=== PATIENT | female | born 1940 | race Caucasian/White ===

== ENCOUNTER 2018-01-15 07:54 | Outpatient (CLI) | payer MEDICARE ==
[2018-01-15 10:53] LABS: BASOPHILS # (AUTO) 0.1 10^3/uL (0.0-0.1); BASOPHILS % (AUTO) 0.8 %; EOSINOPHILS # (AUTO) 0.2 10^3/uL (0.0-0.7); EOSINOPHILS % (AUTO) 2.5 %; HGB - HEMOGLOBIN 11.8 g/dL (12.0-16.0); LYMPHOCYTES % (AUTO) 23.8 %; MEAN CORPUSCULAR HEMOGLOBIN 29.3 pg (27.0-31.0); MEAN CORPUSCULAR HGB CONC 33.5 g/dL (32.0-36.0); MEAN CORPUSCULAR VOLUME 87.2 fL (81.0-99.0); MEAN PLATELET VOLUME 7.1 fL (7.9-10.8); MONOCYTES # (AUTO) 0.7 10^3/uL (0.0-1.0); MONOCYTES % (AUTO) 8.7 %; NEUTROPHILS # (AUTO) 5.4 10^3/uL (1.5-6.6); NEUTROPHILS % (AUTO) 64.2 %; PLT - PLATELET COUNT 350 10^3/uL (130-450); RED BLOOD COUNT 4.04 10^6/uL (4.20-5.40); RED CELL DISTRIBUTION WIDTH 13.4 % (12.0-15.0); WHITE BLOOD COUNT 8.4 x10^3/uL (4.8-10.8)
[2018-01-15 11:24] LABS: ALBUMIN 3.6 g/dL (3.2-5.5); BILIRUBIN,TOTAL 0.6 mg/dL (0.2-1.0); CALCIUM 8.8 mg/dL (8.5-10.3); CREATININE 0.5 mg/dL (0.4-1.0); TOTAL PROTEIN 7.3 g/dL (6.7-8.2)
== END 2018-01-15 07:55 | disposition home or self-care (01) ==
LOC: LAB.F 07:54
PROVIDERS: ATTEND Physician Assistant Medical
DX: R53.83 Other fatigue (principal); M25.50 Pain in unspecified joint; R51 Headache; E55.9 Vitamin D deficiency, unspecified
CPT/HCPCS: 36415; 80053; 82306; 85025

== ENCOUNTER 2018-02-12 14:57 | Outpatient (CLI) | payer MEDICARE | END 2018-02-12 14:58 | disposition home or self-care (01) | LOC: LAB.F 14:57 | PROVIDERS: ATTEND Internal Medicine | DX: M25.50 Pain in unspecified joint (principal) | CPT/HCPCS: 36415; 85651 ==

== ENCOUNTER 2018-03-26 11:55 | Outpatient (CLI) | payer MEDICARE ==
[2018-03-26 17:25] LABS: HGB - HEMOGLOBIN 12.9 g/dL (12.0-16.0); MEAN CORPUSCULAR HEMOGLOBIN 28.9 pg (27.0-31.0); MEAN CORPUSCULAR VOLUME 87.8 fL (81.0-99.0); MEAN PLATELET VOLUME 7.2 fL (7.9-10.8); RED BLOOD COUNT 4.46 10^6/uL (4.20-5.40); WHITE BLOOD COUNT 12.7 x10^3/uL (4.8-10.8)
[2018-03-26 18:03] LABS: CALCIUM 9.1 mg/dL (8.5-10.3); CREATININE 0.6 mg/dL (0.4-1.0)
== END 2018-03-26 11:56 | disposition home or self-care (01) ==
LOC: LAB.F 11:55
PROVIDERS: ATTEND Internal Medicine
DX: M35.3 Polymyalgia rheumatica (principal)
CPT/HCPCS: 36415; 80048; 85027; 85651

== ENCOUNTER 2018-04-20 11:29 | Outpatient (CLI) | payer MEDICARE | END 2018-04-20 11:30 | disposition home or self-care (01) | LOC: LAB.R 11:29 | PROVIDERS: ATTEND Internal Medicine | DX: N30.90 Cystitis, unspecified without hematuria (principal) | CPT/HCPCS: 87086 ==

== ENCOUNTER 2018-05-21 13:13 | Outpatient (CLI) | payer MEDICARE ==
[2018-05-21 17:37] LABS: HGB - HEMOGLOBIN 13.1 g/dL (12.0-16.0); MEAN CORPUSCULAR HGB CONC 34.2 g/dL (32.0-36.0); MEAN CORPUSCULAR VOLUME 87.6 fL (81.0-99.0); MEAN PLATELET VOLUME 7.2 fL (7.9-10.8); RED BLOOD COUNT 4.38 10^6/uL (4.20-5.40); RED CELL DISTRIBUTION WIDTH 16.4 % (12.0-15.0); WHITE BLOOD COUNT 9.8 x10^3/uL (4.8-10.8)
== END 2018-05-21 13:14 | disposition home or self-care (01) ==
LOC: LAB.F 13:13
PROVIDERS: ATTEND Internal Medicine
DX: M35.3 Polymyalgia rheumatica (principal)
CPT/HCPCS: 36415; 85027; 85651

== ENCOUNTER 2018-07-09 14:12 | Outpatient (CLI) | payer MEDICARE | END 2018-07-09 14:13 | disposition home or self-care (01) | LOC: LAB.F 14:12 | PROVIDERS: ATTEND Internal Medicine | DX: M35.3 Polymyalgia rheumatica (principal) | CPT/HCPCS: 36415; 85651 ==

== ENCOUNTER 2018-08-24 08:57 | Outpatient (CLI) | payer MEDICARE | END 2018-08-24 08:58 | disposition home or self-care (01) | LOC: LAB.F 08:57 | PROVIDERS: ATTEND Internal Medicine | DX: M35.3 Polymyalgia rheumatica (principal) | CPT/HCPCS: 36415; 85651 ==

== ENCOUNTER 2018-11-30 11:21 | Outpatient (CLI) | payer MEDICARE ==
[2018-11-30 18:19] LABS: BASOPHILS # (AUTO) 0.1 10^3/uL (0.0-0.1); BASOPHILS % (AUTO) 0.6 %; EOSINOPHILS # (AUTO) 0.2 10^3/uL (0.0-0.7); EOSINOPHILS % (AUTO) 2.3 %; HGB - HEMOGLOBIN 13.4 g/dL (12.0-16.0); LYMPHOCYTES # (AUTO) 2.3 10^3/uL (1.5-3.5); LYMPHOCYTES % (AUTO) 29.4 %; MEAN CORPUSCULAR HGB CONC 33.2 g/dL (32.0-36.0); MEAN CORPUSCULAR VOLUME 90.5 fL (81.0-99.0); MEAN PLATELET VOLUME 7.8 fL (7.9-10.8); MONOCYTES # (AUTO) 0.6 10^3/uL (0.0-1.0); MONOCYTES % (AUTO) 8.1 %; NEUTROPHILS # (AUTO) 4.7 10^3/uL (1.5-6.6); NEUTROPHILS % (AUTO) 59.6 %; PLT - PLATELET COUNT 297 10^3/uL (130-450); RED BLOOD COUNT 4.48 10^6/uL (4.20-5.40); RED CELL DISTRIBUTION WIDTH 13.6 % (12.0-15.0); WHITE BLOOD COUNT 7.9 x10^3/uL (4.8-10.8)
[2018-11-30 18:52] LABS: ALBUMIN 3.8 g/dL (3.2-5.5); ALBUMIN/GLOBULIN RATIO 1.2 (1.0-2.2); BILIRUBIN,TOTAL 0.7 mg/dL (0.2-1.0); CALCIUM 9.2 mg/dL (8.5-10.3); CREATININE 0.5 mg/dL (0.4-1.0); TOTAL PROTEIN 6.9 g/dL (6.7-8.2)
== END 2018-11-30 11:22 | disposition home or self-care (01) ==
LOC: LAB.F 11:21
PROVIDERS: ATTEND Internal Medicine
DX: M35.3 Polymyalgia rheumatica (principal)
CPT/HCPCS: 36415; 80053; 85025; 85651

== ENCOUNTER 2019-01-19 10:08 | Outpatient (CLI) | payer MEDICARE ==
[2019-01-19 18:07] LABS: BASOPHILS % (AUTO) 0.3 %; EOSINOPHILS % (AUTO) 0.4 %; HGB - HEMOGLOBIN 12.9 g/dL (12.0-16.0); LYMPHOCYTES # (AUTO) 3.6 10^3/uL (1.5-3.5); LYMPHOCYTES % (AUTO) 35.5 %; MEAN CORPUSCULAR HEMOGLOBIN 30.5 pg (27.0-31.0); MEAN CORPUSCULAR HGB CONC 33.4 g/dL (32.0-36.0); MEAN CORPUSCULAR VOLUME 91.6 fL (81.0-99.0); MEAN PLATELET VOLUME 7.5 fL (7.9-10.8); MONOCYTES # (AUTO) 0.8 10^3/uL (0.0-1.0); MONOCYTES % (AUTO) 7.7 %; NEUTROPHILS # (AUTO) 5.7 10^3/uL (1.5-6.6); NEUTROPHILS % (AUTO) 56.1 %; PLT - PLATELET COUNT 293 10^3/uL (130-450); RED BLOOD COUNT 4.22 10^6/uL (4.20-5.40); RED CELL DISTRIBUTION WIDTH 14.7 % (12.0-15.0); WHITE BLOOD COUNT 10.2 x10^3/uL (4.8-10.8)
== END 2019-01-19 10:09 | disposition home or self-care (01) ==
LOC: LAB.F 10:08
PROVIDERS: ATTEND Internal Medicine
DX: M35.3 Polymyalgia rheumatica (principal)
CPT/HCPCS: 36415; 85025; 85651

== ENCOUNTER 2019-03-24 10:44 | Outpatient (CLI) | payer MEDICARE | END 2019-03-24 10:45 | disposition home or self-care (01) | LOC: LAB.S 10:44 | PROVIDERS: ATTEND Internal Medicine | DX: M35.3 Polymyalgia rheumatica (principal) | CPT/HCPCS: 36415; 85651 ==

== ENCOUNTER 2019-03-25 12:49 | Outpatient (CLI) | payer MEDICARE ==
--- NOTE | 2019-03-26 11:18 | DEXA Report ---
Reason: OSTEOPENIA Procedure Date: 03/25/2019 Accession Number: [id number] / [id number] Procedure: DEX - Dexa Spine and/or Hip CPT Code: FULL RESULT: EXAM: Dexa Spine and/or Hip DATE: 03/25/2019 1:25 PM CLINICAL HISTORY: OSTEOPENIA TECHNIQUE: Dual energy x-ray absorptiometry (DXA) was performed on a [employer] System. Regions measured are the AP Spine, femoral neck, and if needed forearm. COMPARISON: 04/11/2016. In accordance with the International Society for Clinical Densitometry (ISCD) guidelines, data from previous exams may be reanalyzed using current recommendations and techniques. This is done to allow a more accurate basis for comparison with the current study. FINDINGS: The data for the lumbar spine is as follows: BMD (g/cm/cm) T-SCORE Z-SCORE REGION L1 1.066 -0.5 1.1 L2 1.062 -1.2 0.5 L3 1.149 -0.4 1.2 L4 1.195 0.0 1.6 TOTAL 1.123 -0.5 1.2 NOTE: All evaluable vertebrae are used for classification The data for the hip is as follows: BMD (g/cm/cm) T-SCORE Z-SCORE REGION Neck 0.887 -1.1 0.8 TOTAL 0.909 -0.8 0.9 NOTE: The femoral neck or total proximal femur, whichever is lowest, is used for classification. DXA RESULTS SUMMARY: Spine SCAN DATE [age] BMD CHANGE VS CHANGE VS PREVIOUS PREVIOUS % 5/25/2019 [age] 1.123 -0.021 -1.8 04/11/2016 [age] 1.144 * Denotes significant change at the 95% confidence level. Denotes dissimilar scan types or analysis methods. DXA RESULTS SUMMARY: Hip SCAN DATE [age]GE BMD CHANGE VS CHANGE VS PREVIOUS PREVIOUS % 5/25/2019 78.7 0.909 -0.020 -2.2 04/11/2019 75.8 0.929 * Denotes significant change at the 95% confidence level. Denotes dissimilar scan types or analysis methods. IMPRESSION: THE WHO CLASSIFICATION BASED ON THE INTERNATIONAL REFERENCE STANDARD IS OSTEOPENIA. THE FRACTURE RISK IS INCREASED. RECOMMENDATION: Patients with diagnosis of osteoporosis or osteopenia should have regular bone mineral density assessment. For those eligible for Medicare, routine testing is allowed once every 2 years. Testing frequency can be increased for patients who have rapidly progressing disease or for those who are receiving medical therapy to restore bone mass. COMMENT: World Health Organization (WHO) definitions for osteoporosis and osteopenia: NORMAL BMD: T-score at -1.0 or higher, fracture risk is low OSTEOPENIA BMD: T-score between -1.0 and -2.5, fracture risk is increased. OSTEOPOROSIS BMD: T-score at -2.5 or lower, fracture risk is high. National Osteoporosis Foundation recommends: 1. Obtain adequate dietary calcium (at least 1200 mg per day) and vitamin D (400-800 international units per day). 2. Participate, as appropriate, in regular weightbearing and muscle-strengthening exercise. 3. Avoid tobacco use and reduce alcohol and caffeine intake. 4. For more detailed information see the website at www.NOF.org.
== END 2019-03-25 12:50 | disposition home or self-care (01) ==
LOC: DI 12:49
PROVIDERS: ATTEND Internal Medicine
DX: M85.88 Other specified disorders of bone density and structure, other site (principal)
CPT/HCPCS: 77080

== ENCOUNTER 2019-05-13 07:27 | Day surgery (SDC) | payer MEDICARE ==
[~2019-05-13 07:27] MED LIST: TRIAMCIN/MOXIFLOX OPHTHALMIC 0.6 ML VIAL IO ONE
[2019-05-13] MEDS ORDERED: MIDAZOLAM 2 MG/2 ML VIAL IVP ONE (07:28)
[2019-05-13] MEDS ORDERED: BRIMONIDINE 0.2% OPHTH DROPS 5 ML ONE (07:28)
[2019-05-13] MEDS ORDERED: EPINEPHrine 1 MG/ML AMP ONE (07:28)
[2019-05-13] MEDS ORDERED: TIMOLOL 0.5% OPHTH DROPS ONE (07:28)
[2019-05-13] MEDS ORDERED: BSS/LIDOCAINE/EPINEPHRINE 1 ML SYRINGE ONE (07:29)
[2019-05-13] MEDS ORDERED: VANCOMYCIN OPHTHALMI 8MG/0.8ML 8 MG/0.8 ML SYRINGE IO ONE ×2 (07:29→10:16)
[2019-05-13] MEDS ORDERED: KETOROLAC 0.45% OPHTH DROPS ONE (07:33)
[2019-05-13] MEDS ORDERED: CYCLOPENTOLATE 1% OPHTH DROPS 2 ML ONE (07:34)
[2019-05-13] MEDS ORDERED: PROPARACAINE 0.5% OPHTH DROPS 15 ML ONE (07:34)
[2019-05-13] MEDS ORDERED: PHENYLEPHRINE 2.5% OPHTH 2 ML DROPS ONE (07:34)
[2019-05-13] MEDS ORDERED: CYCLOPENTOLATE 1% OPHTH DROPS 2 ML RIGHTEYE ONE (07:45)
[2019-05-13] MEDS ORDERED: KETOROLAC 0.45% OPHTH DROPS RIGHTEYE ONE (07:45)
[2019-05-13] MEDS ORDERED: PROPARACAINE 0.5% OPHTH DROPS 15 ML RIGHTEYE ONE (07:45)
[2019-05-13] MEDS ORDERED: PHENYLEPHRINE 2.5% OPHTH 2 ML DROPS RIGHTEYE ONE (07:45)
[2019-05-13] MEDS ORDERED: LACTATED RINGERS 500 ML IV ONE (07:45)
--- NOTE | 2019-05-13 09:23 | ANESTHESIA ---
Pre-Anesthesia VS, & Labs - Diagnosis Right nuclear sclerotic cataract - Procedure Right phaco with IOL implant Vital Signs: Temp Pulse Resp BP Pulse Ox 36.7 C 74 14 168/92 H 97 05/13/19 07:47 05/13/19 07:47 05/13/19 07:47 05/13/19 07:47 05/13/19 07:47 Height 5 ft 2 in Weight (kg) 69 kg - NPO >8 hours - Is Patient ?: Not Applicable - Lab Results Lab results reviewed: No Home Medications and Allergies Lisinopril 10 mg PO DAILY 03/17/19 predniSONE [Prednisone] 10 mg PO DAILY 03/17/19 Allergies/Adverse Reactions: Allergies Allergy/AdvReac Type Severity Reaction Status Date / Time No Known Drug Allergies Allergy Verified 05/13/19 07:53 Anes History & Medical History - Anesthetic History Anesthesia Complications: reports: No previous complications Family history of Anesthesia Complications: Denies Family history of Malignant Hyperthermia: Denies - Medical History Cardiovascular: reports: Hypertension Pulmonary: reports: None Gastrointestinal: reports: None Urinary: reports: None Neuro: reports: None Musculoskeletal: reports: None 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, poly mylasia rheumatica) Blood Disorders: reports: None Skin: reports: None Smoking Status: Never smoker Psychosocial: reports: No issues indicated - Surgical History Eyes Ears Nose Throat (EENT): Cataracts Gynecologic: Tubal ligation Exam General: Alert, Oriented x3, Cooperative Dental: WNL Mouth Openin Fingerbreadth Neck Mobility: Normal Mallampati classification: II Thyromental Distance: greater than 6 cm Respiratory: Lungs clear Cardiovascular: Regular rate Mental/Cognitive Status: Alert/Oriented X3 Cognitive Status: Within normal limits Plan Anesthesia Type: MAC Consent for Procedure(s) Verified and Reviewed: Yes Code Status: Attempt Resuscitation ASA classification: 2-Mild systemic disease Is this case an emergency?: No
[2019-05-13] MEDS ORDERED: EPINEPHrine 1 MG/ML AMP IVP ONE (10:14)
[2019-05-13] MEDS ORDERED: TIMOLOL 0.5% OPHTH DROPS OPTH ONE (10:14)
[2019-05-13] MEDS ORDERED: TRIAMCIN/MOXIFLOX OPHTHALMIC 0.6 ML VIAL IO ONE (10:14)
[2019-05-13] MEDS ORDERED: BRIMONIDINE 0.2% OPHTH DROPS 5 ML OPTH ONE (10:14)
[2019-05-13] MEDS ORDERED: CHONDR SULF/HYALURONATE SYRINGE IO ONE (10:14)
[2019-05-13] MEDS ORDERED: BSS/LIDOCAINE/EPINEPHRINE 1 ML SYRINGE IO ONE (10:14)
[2019-05-13 10:31] VITALS: BP 145/72
--- NOTE | 2019-05-13 11:02 | OPERATIVE REPORT ---
DATE OF SERVICE: 05/13/2019 Physician: Eliceo Buenrostro MD PREOPERATIVE DIAGNOSIS: Visually significant cataract, right eye. Cataract surgery was performed on the left eye on 03/18/2019. POSTOPERATIVE DIAGNOSIS: Visually significant cataract, right eye. Cataract surgery was performed o n the left eye on 03/18/2019. PROCEDURE: Phacoemulsification with posterior chamber intraocular lens implant, right eye. SURGEON: Eliceo Buenrostro MD ANESTHESIA: Monitored anesthesia care. COMPLICATIONS: None. OPERATIVE INDICATIONS: This is a 78-year-old woman with progressive vision loss in the right eye due to 3-4+ nuclear sclerotic cataract. Best corrected visual acuity was 20/40, with glare to 20/100 in the right eye. Indications for surgery were difficulty seeing words on a computer screen. She was consented at length concerning risks and benefits of cataract surgery, after which she expressed a de sire to proceed with surgery. OPERATIVE PROCEDURE: Patient was taken to OR #3 and placed under monitored anesthesia care. A surgi gloria timeout was conducted confirming correct patient, correct procedure, and correct surgical site. She was given topical anesthesia, and prepped and draped in the usual sterile fashion. The eye was e ntered at the 12 and 9 o'clock positions. Intracameral Shugarcaine was injected into the anterior ch kelli, followed by Viscoat. A continuous-tear curvilinear capsulorrhexis was performed. The nucleus was hydrodissected and phacoemulsified. The cortex was evacuated using automated infusion and aspir ation. Provisc was injected in the capsular bag, and a 20.5 diopter intraocular lens was inserted in the bag. Approximately 0.8 mL of a mixture of triamcinolone, moxifloxacin and vancomycin was inject ed subconjunctivally in the superior quadrant for infection and inflammation prophylaxis. I and A wa s used to evacuate the viscoelastic materials. The eye was inflated to physiologic pressure using ba lanced salt solution and found to be watertight. Patient was taken from the operating room in good c ondition and given postoperative instructions. TD: 05/13/2019 10:33
== END 2019-05-13 07:28 | disposition home or self-care (01) ==
LOC: SDS 07:27
PROVIDERS: ATTEND Ophthalmology
PROC: 08RJ3JZ Replacement of Right Lens with Synthetic Substitute, Percutaneous Approach (ICD-10-PCS; principal; 2019-05-13 08:30)
DX: H25.11 Age-related nuclear cataract, right eye (principal); I10 Essential (primary) hypertension; M35.3 Polymyalgia rheumatica
CPT/HCPCS: 66984; A9270; J3490; V2632

== ENCOUNTER 2019-05-21 10:44 | Outpatient (CLI) | payer MEDICARE | END 2019-05-21 10:45 | disposition home or self-care (01) | LOC: LAB.S 10:44 | PROVIDERS: ATTEND Internal Medicine | DX: M35.3 Polymyalgia rheumatica (principal) | CPT/HCPCS: 36415; 85651 ==

== ENCOUNTER 2019-06-25 12:47 | Outpatient (CLI) | payer MEDICARE | END 2019-06-25 12:48 | disposition home or self-care (01) | LOC: LAB.S 12:47 | PROVIDERS: ATTEND Internal Medicine | DX: M35.3 Polymyalgia rheumatica (principal) | CPT/HCPCS: 36415; 85651 ==

== ENCOUNTER 2019-07-12 08:00 | Outpatient (CLI) | payer MEDICARE ==
[2019-07-12 21:36] LABS: CANDIDA GROUP DNA NEGATIVE (NEGATIVE); CANDIDA KRUSEI DNA NEGATIVE (NEGATIVE); TRICHOMONAS VAGINALIS DNA NEGATIVE (NEGATIVE)
== END 2019-07-12 23:59 | disposition home or self-care (01) ==
LOC: LAB.R 08:00
PROVIDERS: ATTEND Nurse Practitioner Obstetrics & Gynecology
DX: N89.8 Other specified noninflammatory disorders of vagina (principal)
CPT/HCPCS: 87661; 87801

== ENCOUNTER 2019-07-29 13:42 | Outpatient (CLI) | payer MEDICARE | END 2019-07-29 13:43 | disposition home or self-care (01) | LOC: LAB.S 13:42 | PROVIDERS: ATTEND Internal Medicine | DX: M35.3 Polymyalgia rheumatica (principal) | CPT/HCPCS: 36415; 85651 ==

== ENCOUNTER 2019-08-23 13:11 | Outpatient (CLI) | payer MEDICARE | END 2019-08-23 13:12 | disposition home or self-care (01) | LOC: LAB.S 13:11 | PROVIDERS: ATTEND Internal Medicine | DX: M35.3 Polymyalgia rheumatica (principal) | CPT/HCPCS: 36415; 85651 ==

== ENCOUNTER 2021-08-08 09:31 | Outpatient (CLI) | payer MEDICARE ==
[2021-08-08 14:47] LABS: BASOPHILS # (AUTO) 0.1 10^3/uL (0.0-0.1); BASOPHILS % (AUTO) 1.1 %; EOSINOPHILS # (AUTO) 0.2 10^3/uL (0.0-0.7); HCT - HEMATOCRIT 43.3 % (37.0-47.0); HGB - HEMOGLOBIN 13.8 g/dL (12.0-16.0); LYMPHOCYTES # (AUTO) 2.2 10^3/uL (1.5-3.5); LYMPHOCYTES % (AUTO) 34.6 %; MEAN CORPUSCULAR HEMOGLOBIN 29.5 pg (27.0-31.0); MEAN CORPUSCULAR HGB CONC 31.9 g/dL (32.0-36.0); MEAN CORPUSCULAR VOLUME 92.5 fL (81.0-99.0); MEAN PLATELET VOLUME 9.4 fL (7.9-10.8); MONOCYTES # (AUTO) 0.4 10^3/uL (0.0-1.0); MONOCYTES % (AUTO) 6.7 %; NEUTROPHILS # (AUTO) 3.4 10^3/uL (1.5-6.6); PLT - PLATELET COUNT 301 10^3/uL (130-450); RED BLOOD COUNT 4.68 10^6/uL (4.20-5.40); RED CELL DISTRIBUTION WIDTH 13.1 % (12.0-15.0); WHITE BLOOD COUNT 6.3 x10^3/uL (4.8-10.8)
[2021-08-08 15:15] LABS: THYROID STIMULATING HORMONE 3.57 uIU/mL (0.34-5.60)
[2021-08-08 15:18] LABS: ALBUMIN/GLOBULIN RATIO 1.4 (1.0-2.2); ALKALINE PHOSPHATASE 67 IU/L (42-121); ALT ALANINE AMINOTRANSFERASE 16 IU/L (10-60); AST ASPARTATE AMINOTRANSFERASE 21 IU/L (10-42); BILIRUBIN,TOTAL 0.7 mg/dL (0.2-1.0); BUN - BLOOD UREA NITROGEN 12 mg/dL (6-20); CALCIUM 8.9 mg/dL (8.5-10.3); CARBON DIOXIDE - CO2 27 mmol/L (21-32); CHLORIDE 102 mmol/L (101-111); CHOL/HDL RATIO 5.1 (<4.4); CHOLESTEROL 295 mg/dL; CREATININE 0.6 mg/dL (0.4-1.0); GFR - MDRD 96 (>89); GLUCOSE 88 mg/dL (70-100); HDL CHOLESTEROL 58 mg/dL; LDL CHOLESTEROL,CALCULATED 214 mg/dL; LDL/HDL RATIO 3.7 (<4.4); POTASSIUM 3.7 mmol/L (3.5-5.0); SODIUM 138 mmol/L (135-145); TOTAL PROTEIN 6.9 g/dL (6.7-8.2); TRIGLYCERIDES 117 mg/dL; VLDL CHOLESTEROL 23 mg/dL
== END 2021-08-08 09:32 | disposition home or self-care (01) ==
LOC: LAB.S 09:31
PROVIDERS: ATTEND Registered Nurse
DX: I10 Essential (primary) hypertension (principal); M35.3 Polymyalgia rheumatica; M85.80 Other specified disorders of bone density and structure, unspecified site
CPT/HCPCS: 36415; 80053; 80061; 83721; 84443; 85025

== ENCOUNTER 2022-07-29 09:51 | Outpatient (CLI) | payer MEDICARE ==
[2022-07-29 14:55] LABS: BASOPHILS # (AUTO) 0.1 10^3/uL (0.0-0.1); BASOPHILS % (AUTO) 1.2 %; EOSINOPHILS # (AUTO) 0.4 10^3/uL (0.0-0.7); EOSINOPHILS % (AUTO) 5.8 %; HCT - HEMATOCRIT 43.9 % (37.0-47.0); HGB - HEMOGLOBIN 13.7 g/dL (12.0-16.0); LYMPHOCYTES # (AUTO) 2.4 10^3/uL (1.5-3.5); LYMPHOCYTES % (AUTO) 35.8 %; MEAN CORPUSCULAR HEMOGLOBIN 28.8 pg (27.0-31.0); MEAN CORPUSCULAR HGB CONC 31.2 g/dL (32.0-36.0); MEAN CORPUSCULAR VOLUME 92.2 fL (81.0-99.0); MEAN PLATELET VOLUME 9.6 fL (7.9-10.8); MONOCYTES # (AUTO) 0.5 10^3/uL (0.0-1.0); MONOCYTES % (AUTO) 7.4 %; NEUTROPHILS # (AUTO) 3.3 10^3/uL (1.5-6.6); NEUTROPHILS % (AUTO) 49.5 %; PLT - PLATELET COUNT 306 10^3/uL (130-450); RED BLOOD COUNT 4.76 10^6/uL (4.20-5.40); RED CELL DISTRIBUTION WIDTH 13.2 % (12.0-15.0); WHITE BLOOD COUNT 6.7 x10^3/uL (4.8-10.8)
[2022-07-29 15:51] LABS: THYROID STIMULATING HORMONE 3.87 uIU/mL (0.34-5.60)
[2022-07-29 15:55] LABS: ALBUMIN 3.9 g/dL (3.2-5.5); ALBUMIN/GLOBULIN RATIO 1.2 (1.0-2.2); ALKALINE PHOSPHATASE 66 IU/L (42-121); ALT ALANINE AMINOTRANSFERASE 13 IU/L (10-60); AST ASPARTATE AMINOTRANSFERASE 20 IU/L (10-42); BILIRUBIN,TOTAL 0.8 mg/dL (0.2-1.0); BUN - BLOOD UREA NITROGEN 14 mg/dL (6-20); CALCIUM 9.1 mg/dL (8.5-10.3); CARBON DIOXIDE - CO2 29 mmol/L (21-32); CHLORIDE 101 mmol/L (101-111); CHOLESTEROL 282 mg/dL; CREATININE 0.6 mg/dL (0.4-1.0); GFR - MDRD 96 (>89); GLUCOSE 95 mg/dL (70-100); HDL CHOLESTEROL 47 mg/dL; LDL CHOLESTEROL,CALCULATED 208 mg/dL; LDL/HDL RATIO 4.4 (<4.4); POTASSIUM 3.8 mmol/L (3.5-5.0); SODIUM 140 mmol/L (135-145); TOTAL PROTEIN 7.2 g/dL (6.7-8.2); TRIGLYCERIDES 135 mg/dL; VLDL CHOLESTEROL 27 mg/dL
== END 2022-07-29 09:52 | disposition home or self-care (01) ==
LOC: LAB.S 09:51
PROVIDERS: ATTEND Registered Nurse
DX: I10 Essential (primary) hypertension (principal); M35.3 Polymyalgia rheumatica; Z13.29 Encounter for screening for other suspected endocrine disorder
CPT/HCPCS: 36415; 80053; 80061; 83721; 84443; 85025

== ENCOUNTER 2022-09-12 12:52 | Emergency (ER) | payer MEDICARE ==
--- NOTE | 2022-09-12 14:21 | ED Physician Documentation ---
PD HPI LOWER EXT INJURY - Stated complaint Stated Complaint: RIGHT HIP PX - Chief complaint Chief Complaint: Ext Problem - History obtained from History obtained from: Patient - History of Present Illness PD HPI LOW EXT INJURY LOCATION: Right, Hip (lateral and posterior aspect of hip. Not hurting in inguinal area per se. Not in lumbar spine. No new injury.) Type of injury: No: Fall, Twist Where injury occurred: Home Timing - onset: How many days ago (few) Timing - duration: Days (few) Timing - details: Gradual onset, Still present, Waxing and waning Improved by: Rest Worsened by: Moving, Other (walking and twisting of right leg.) Associated symptoms: No: Weakness, Numbness, Swelling, Discolored Similar symptoms before: Has not had sx before Recently seen: Not recently seen Review of Systems Constitutional: denies: Fever, Chills Skin: denies: Rash, Lesions Musculoskeletal: denies: Back pain Neurologic: denies: Focal weakness, Numbness PD PAST MEDICAL HISTORY - Past Medical History Cardiovascular: Hypertension Respiratory: None Neuro: None Endocrine/Autoimmune: Other GI: None : None Psych: Claustrophobia Musculoskeletal: None Derm: None - Past Surgical History /[employer]: Tubal ligation HEENT: Cataracts - Present Medications Home Medications: Ambulatory Orders Medication Instructions Recorded Confirmed lisinopriL [Lisinopril] 10 mg PO DAILY 03/17/19 03/18/19 predniSONE [Prednisone] 10 mg PO DAILY 03/17/19 05/13/19 Meloxicam [Mobic] 7.5 mg PO BID 10 Days #20 tablet 09/12/22 oxyCODONE [Roxicodone] 5 mg PO Q6H PRN #12 tablet 09/12/22 tiZANidine [Zanaflex] 4 mg PO Q8H PRN #20 tablet 09/12/22 - Allergies Allergies/Adverse Reactions: Allergies Allergy/AdvReac Type Severity Reaction Status Date / Time No Known Drug Allergies Allergy Verified 09/12/22 13:02 - Social History Does the pt smoke?: No Smoking Status: Never smoker PD ED PE NORMAL - Vitals Vital signs reviewed: Yes - General General: Alert and oriented X 3, Well developed/nourished, Other (appears uncomfortable lying, worse with turning or moving right leg. Pain to lateral trochanter area and posterior hip/SI area. ) - Abdomen Abdomen: Soft, Non tender - Back Back: No CVA TTP, No spinal TTP, Other (tender in mid to lower SI area. Some tender mildly at trochanter area but not as much as expected with bursitis. No rash nor blisters. ) - Derm Derm: Normal color, Warm and dry, No rash - Extremities Extremities: Other (rotational movement of hip and impaction passively without pain. ) Results - Vitals Vitals: Oxygen O2 Source Room air PD Medical Decision Making - ED course Complexity details: reviewed results (symmetric osteoarthritis of hips. No acute fracture nor malposition. ), considered differential, d/w patient Reviewed Lab Results: arthritic changes noted on xray. ED course: area of pain and provocation seem c/w sacroiliitis more than bursitis or lumbar radiculitis. Departure - Departure Disposition: 01 Home, Self Care Clinical Impression: Lateral pain of right hip, Sacroiliac inflammation Condition: Stable Record reviewed to determine appropriate education?: Yes Instructions: ED Sacroiliitis Follow-Up: Keesha Thornton ARNP [Primary Care Provider] - Prescriptions: Meloxicam [Mobic] 7.5 mg PO BID 10 Days #20 tablet oxyCODONE [Roxicodone] 5 mg PO Q6H PRN #12 tablet PRN Reason: Pain tiZANidine [Zanaflex] 4 mg PO Q8H PRN #20 tablet PRN Reason: Spasms Comments: Your x-ray does not show any obvious fractures or abnormalities to my review of it. The radiology report is still pending. On exam your symptoms sound likely to be more inflammation of the sacroiliac joint and the pelvis area with irritation of the nerves going down the thigh. I would suggest trying treating this with anti-inflammatories and muscle relaxant and pain medicine as well as gentle stretching of the hip and SI joint. I sent prescriptions to [facility] in [place]. Take meloxicam twice daily with food for the next 7 to 10 days. Add tizanidine muscle relaxant every 8 hours to help with spasming in the pelvic muscles. To that add Tylenol every 4-6 hours if needed for pain and add oxycodone every 6 hours if needed for worse pain. I would anticipate improvement over the next several days and quite better over 4 to 5 days. Add in heat or ice whichever feels better. You could also consider physical modalities such as physical therapy, massage, chiropractic. Follow-up with your primary if not improved well over the next several days to week. Return to the ER if you have worsening pain, fevers, skin rash, weakness or numbness in the leg or other concerns. Discharge Date/Time: 09/12/22 15:39
[2022-09-12] MEDS ORDERED: CHERRY SYRUP 10 ML UDC PO ONE (14:51)
[2022-09-12] MEDS ORDERED: ACETAMINOPHEN 325 MG TABLET PO STA (14:51)
[2022-09-12] MEDS ORDERED: NAPROXEN 250 MG TABLET PO STA (14:51)
[2022-09-12] MEDS ORDERED: DEXAMETHASONE 10 MG/ML VIAL PO STA (14:51)
[2022-09-12] MEDS ORDERED: oxyCODONE 5 MG TABLET PO STA (14:51)
--- NOTE | 2022-09-12 15:35 | XRAY Report ---
PROCEDURE: Hip w/Pelvis 2-3V RT INDICATIONS: R hip pain TECHNIQUE: AP pelvis with lateral view(s) of the right hip(s). COMPARISON: None. FINDINGS: Bones: No fractures or dislocations. Mild to moderate bilateral hip joint osteophytic changes are s een with joint space narrowing and subchondral sclerosis. No evidence of avascular necrosis of femora l head. Pelvic ring appears intact. No suspicious bony lesions. Soft tissues: The visualized bowel gas pattern is normal. No suspicious soft tissue calcifications. IMPRESSION: Symmetric appearing bilateral hip joint osteoarthritis. No acute right hip fracture or di slocation. No evidence of avascular necrosis. Reviewed by: Tomy Montejo MD on 09/12/2022 3:34 PM PST Approved by: Tomy Montejo MD on 09/12/2022 3:34 PM PST Station ID: [id number]
[2022-09-12 15:39] VITALS: BP 175/80
== END 2022-09-12 15:39 | disposition home or self-care (01) ==
LOC: ED 12:52
DX: M25.551 Pain in right hip (principal); M46.1 Sacroiliitis, not elsewhere classified; I10 Essential (primary) hypertension
CPT/HCPCS: 73502; 99283; A9270

== ENCOUNTER 2022-09-17 08:00 | Outpatient (CLI) | payer MEDICARE | END 2022-09-17 23:59 | disposition home or self-care (01) | LOC: LAB.S 08:00 | PROVIDERS: ATTEND Physician Assistant Medical | DX: M35.3 Polymyalgia rheumatica (principal) | CPT/HCPCS: 36415; 85651; 86140 ==

== ENCOUNTER 2024-01-01 08:34 | Outpatient (CLI) | payer MEDICARE ==
[2024-01-01 14:45] LABS: BASOPHILS # (AUTO) 0.1 10^3/uL (0.0-0.1); EOSINOPHILS # (AUTO) 0.1 10^3/uL (0.0-0.7); EOSINOPHILS % (AUTO) 1.3 %; HCT - HEMATOCRIT 44.4 % (37.0-47.0); HGB - HEMOGLOBIN 13.4 g/dL (12.0-16.0); LYMPHOCYTES # (AUTO) 2.6 10^3/uL (1.5-3.5); LYMPHOCYTES % (AUTO) 38.1 %; MEAN CORPUSCULAR HEMOGLOBIN 28.7 pg (27.0-31.0); MEAN CORPUSCULAR HGB CONC 30.2 g/dL (32.0-36.0); MEAN CORPUSCULAR VOLUME 95.1 fL (81.0-99.0); MEAN PLATELET VOLUME 9.6 fL (7.9-10.8); MONOCYTES # (AUTO) 0.5 10^3/uL (0.0-1.0); MONOCYTES % (AUTO) 6.6 %; NEUTROPHILS # (AUTO) 3.6 10^3/uL (1.5-6.6); NEUTROPHILS % (AUTO) 52.6 %; PLT - PLATELET COUNT 299 10^3/uL (130-450); RED BLOOD COUNT 4.67 10^6/uL (4.20-5.40); RED CELL DISTRIBUTION WIDTH 13.2 % (12.0-15.0); WHITE BLOOD COUNT 6.8 x10^3/uL (4.8-10.8)
[2024-01-01 15:21] LABS: ALBUMIN 4.2 g/dL (3.2-5.5); ALBUMIN/GLOBULIN RATIO 1.6 (1.0-2.2); ALKALINE PHOSPHATASE 60 IU/L (42-121); ALT ALANINE AMINOTRANSFERASE 9 IU/L (10-60); AST ASPARTATE AMINOTRANSFERASE 13 IU/L (10-42); BILIRUBIN,TOTAL 0.5 mg/dL (0.2-1.0); BUN - BLOOD UREA NITROGEN 10 mg/dL (6-20); CALCIUM 9.5 mg/dL (8.5-10.3); CARBON DIOXIDE - CO2 29 mmol/L (21-32); CHLORIDE 105 mmol/L (101-111); CHOL/HDL RATIO 4.7 (<4.4); CHOLESTEROL 258 mg/dL; CREATININE 0.5 mg/dL (0.6-1.3); GFR - MDRD 118 (>89); GLUCOSE 86 mg/dL (74-104); HDL CHOLESTEROL 55 mg/dL; LDL CHOLESTEROL,CALCULATED 175 mg/dL; LDL/HDL RATIO 3.2 (<4.4); SODIUM 139 mmol/L (135-145); TOTAL PROTEIN 6.8 g/dL (6.4-8.9); TRIGLYCERIDES 141 mg/dL (48-352); VLDL CHOLESTEROL 28 mg/dL
[2024-01-01 15:33] LABS: THYROID STIMULATING HORMONE 2.98 uIU/mL (0.34-5.60)
== END 2024-01-01 08:35 | disposition home or self-care (01) ==
LOC: LAB.S 08:34
PROVIDERS: ATTEND Registered Nurse
DX: I10 Essential (primary) hypertension (principal); Z13.29 Encounter for screening for other suspected endocrine disorder
CPT/HCPCS: 36415; 80053; 80061; 83721; 84443; 85025

== ENCOUNTER 2024-05-01 13:56 | Outpatient (CLI) | payer MEDICARE ==
--- NOTE | 2024-05-03 11:02 | MRI Report ---
PROCEDURE: Lumbar Spine WO INDICATIONS: LUMBAR RADICULOPATHY TECHNIQUE: Noncontrast sagittal T1 spin echo and T2 fast echo, sagittal STIR, axial T1 and T2 fast spin echo thr ough the lumbar spine. In cases with scoliosis, additional coronal T2 fast spin echo may be performe d. COMPARISON: None. FINDINGS: Image quality: Diagnostic Alignment: No spondylolisthesis Marrow: No acute fracture. Multilevel disc desiccation Cord: Cord terminates in normal position. Cauda equina nerve roots are unremarkable Soft tissues: No pathologic paravertebral findings such as fluid collection or discrete mass. No abdo jovanny aortic aneurysm. Specific levels: L1-L2: No stenosis. L2-L3: Mild facet arthropathy and small diffuse disc bulge. Mild subarticular recess narrowing bilate rally. L3-L4: Mild to moderate facet arthropathy. Mild to moderate diffuse disc bulge. Mild central narrowin g affecting both subarticular recesses bilaterally. Mild bilateral neural foraminal narrowing. Small annular fissure. L4-L5: Right foraminal and paracentral protrusion. Moderate to severe right subarticular recess narro wing. Mild to moderate central narrowing. Ligamentum flavum hypertrophy. Moderate facet arthropathy. Superimposed diffuse disc bulge. Mild left and moderate to severe right neural foraminal narrowing. L5-S1: Mild to moderate facet arthropathy and diffuse disc bulge. Mild to moderate bilateral neural f oraminal narrowing. 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 Reviewed by: Rajendra Villeda MD on 05/03/2024 11:01 AM PDT Approved by: Rajendra Villeda MD on 05/03/2024 11:01 AM PDT Station ID: [id number]
== END 2024-05-01 13:57 | disposition home or self-care (01) ==
LOC: DI 13:56
PROVIDERS: ATTEND Physical Medicine & Rehabilitation
DX: M47.26 Other spondylosis with radiculopathy, lumbar region (principal); M51.16 Intervertebral disc disorders with radiculopathy, lumbar region; M99.53 Intervertebral disc stenosis of neural canal of lumbar region; M48.061 Spinal stenosis, lumbar region without neurogenic claudication